=== PATIENT | female | born 1980 | race Two or more races ===

== ENCOUNTER 2022-08-27 11:30 | Emergency (ER) | payer OTHER ==
[~2022-08-27] VITALS: Ht 167.6 cm; Wt 99.3 kg
[2022-08-27] MEDS ORDERED: ESCITALOPRAM OX10 MG (11:47)
== END 2022-08-27 15:07 ==
LOC: ER 11:30
DX: T78.40XA Allergy, unspecified, initial encounter (principal); F41.8 Other specified anxiety disorders; D64.9 Anemia, unspecified